=== PATIENT | male | born 1960 | race Caucasian/White ===

== ENCOUNTER 2018-04-25 08:33 | Emergency (ER) | payer OTHER ==
[2018-04-25 08:40] VITALS: BMI 29.9
--- NOTE | 2018-04-25 08:58 | PDOC ---
*Physical Exam - Vital Signs Last Vital Signs Temp Pulse Resp BP Pulse Ox 97.6 F 109 H 20 123/82 98 04/25/18 08:36 04/25/18 08:36 04/25/18 08:36 04/25/18 08:36 04/25/18 08:36 ED Treatment Course - LABORATORY CBC & Chemistry Diagram: 04/25/18 09:42 04/25/18 09:41 Medical Decision Making - Medical Decision Making 04/25/18 08:58 Mr Juárez is a 57 yo M who presents to the ER with a complaint of nausea, vomiting, diarrhea Three episodes of diarrhea (nonbloody, non mucoid, non bilious) Four episodes of vomiting No ill contacts, no recent travel No fevers or chills Pt seen by Midlevel Provider under my direct supervision Pt interviewed and examined Will do Labs No abd tenderness to suggest need for CT Re asseess Ancillary studies reviewed I agree with plan as outlined by Midlevel Provider 04/25/18 09:39 04/25/18 11:53 Laboratory Tests 04/25/18 04/25/18 04/25/18 09:41 09:41 09:42 WBC 16.0 H Hgb 14.8 Hct 44.6 Plt Count 262 BUN 20 H Creatinine 0.9 Urine WBC (Auto) 2 Urine RBC (Auto) 3 *DC/Admit/Observation/Transfer - Referrals Referrals: Mino Bunn MD [Primary Care Provider] - - Patient Instructions - Post Discharge Activity
--- NOTE | 2018-04-25 09:00 | PDOC ---
History of Present Illness - General Chief Complaint: Nausea/Vomiting Stated Complaint: VOMITING Time Seen by Provider: 04/25/18 08:52 Past History - Past Medical History Allergies/Adverse Reactions: Allergies Allergy/AdvReac Type Severity Reaction Status Date / Time No Known Allergies Allergy Verified 04/25/18 08:39 Home Medications: Ambulatory Orders Ondansetron [Zofran Odt -] 4 mg SL TID #10 od.tablet 04/25/18 COPD: No HTN: Yes - Suicide/Smoking/Psychosocial Hx Smoking History: Never smoked *Physical Exam - Vital Signs Last Vital Signs Temp Pulse Resp BP Pulse Ox 97.6 F 109 H 20 123/82 98 04/25/18 08:36 04/25/18 08:36 04/25/18 08:36 04/25/18 08:36 04/25/18 08:36 Moderate Sedation - Procedure Monitoring Vital Signs: Procedure Monitoring Vital Signs Temperature 97.6 F 04/25/18 08:36 Pulse Rate 109 H 04/25/18 08:36 Respiratory Rate 20 04/25/18 08:36 Blood Pressure 123/82 04/25/18 08:36 O2 Sat by Pulse Oximetry (%) 98 04/25/18 08:36 ED Treatment Course - LABORATORY CBC & Chemistry Diagram: 04/25/18 09:42 04/25/18 09:41 *DC/Admit/Observation/Transfer Diagnosis at time of Disposition: Gastroenteritis - Discharge Dispostion Disposition: HOME Condition at time of disposition: Stable Decision to Admit order: No - Referrals Referrals: Mino Bunn MD [Primary Care Provider] - - Patient Instructions Printed Discharge Instructions: DI for Vomiting -- Adult Additional Instructions: You have vomiting and diarrhea. You may take zofran every 8 hours as needed for nausea and vomiting. Avoid all dairy products until 48 hours after the vomiting/diarrhea has resolved. Eat a bland diet including apple sauce, toast, bananas, and plain rice Drink plenty of fluids including pedialyte, watered down juices and water Follow up with your primary care doctor this week Return to the ED if you develop fevers, abdominal pain, worsening vomiting, or if you have any changes in your symptoms. - Post Discharge Activity
[2018-04-25] MEDS ORDERED: ACETAMINOPHEN 1000 MG/100 ML VIAL (NON FORMULARY) IVPB ONE (09:30)
[2018-04-25] MEDS ORDERED: SODIUM CHLORIDE 1,000 ML IV STA ×2 (09:30→11:46)
[2018-04-25] MEDS ORDERED: ONDANSETRON 4 MG/2 ML VIAL IVPUSH ONE (09:30)
[2018-04-25] MEDS ORDERED: ACETAMINOPHEN INJECTION 100 ML IVPB ONE (09:43)
[2018-04-25] MEDS ORDERED: ONDANSETRON 4 MG/2 ML VIAL ONE (09:44)
[2018-04-25 10:33] LABS: BASO % 0.1 % (0-2.0); HEMATOCRIT 44.6 % (35.4-49); HEMOGLOBIN 14.8 GM/dL (11.7-16.9); LYMPH % 2.6 % (8-40); MCH 27.8 pg (25.7-33.7); MCHC 33.1 g/dl (32.0-35.9); MEAN CELL VOLUME 84.1 fl (80-96); MEAN PLT VOLUME 8.5 fl (7.5-11.1); MONO % 4.3 % (3.8-10.2); PLATELET COUNT 262 K/MM3 (134-434); RBC 5.31 M/mm3 (4.00-5.60); RDW 13.3 % (11.9-15.9)
[2018-04-25 10:38] LABS: URINE APPEARANCE CLEAR; URINE BILIRUBIN NEGATIVE (<2.0 mg/dL); URINE COLOR YELLOW; URINE GLUCOSE (UA) NEGATIVE (NEGATIVE); URINE KETONE NEGATIVE (NEGATIVE); URINE LEUK ESTERASE NEGATIVE (NEGATIVE); URINE NITRITE NEGATIVE (NEGATIVE); URINE PROTEIN NEGATIVE (NEGATIVE); URINE UROBILINOGEN NEGATIVE mg/dL (0.2-1.0)
[2018-04-25 10:48] LABS: EPI CELLS RARE /HPF (FEW); URINE HYALINE CAST 3 /lpf; URINE MUCUS FEW
[2018-04-25 11:00] LABS: ALBUMIN 4.4 g/dl (3.4-5.0); ALK PHOS 74 U/L (45-117); ANION GAP 9 MMOL/L (8-16); BILIRUBIN,TOTAL 0.7 mg/dL (0.2-1); BLOOD UREA NITROGEN 20 mg/dL (7-18); CALCIUM 8.7 mg/dL (8.5-10.1); CHLORIDE 106 mmol/L (98-107); CO2 23 mmol/L (21-32); CREATININE 0.9 mg/dL (0.55-1.3); GLUCOSE,RANDOM 119 mg/dL (74-106); POTASSIUM 4.2 mmol/L (3.5-5.1); SGOT/AST 44 U/L (15-37); SGPT/ALT 60 U/L (13-61); SODIUM 138 mmol/L (136-145); TOT PROT 7.3 g/dl (6.4-8.2)
[2018-04-25 12:37] LABS: ANISOCYTOSIS 0; MACROCYTOSIS 0; PLATELET ESTIMATE NORMAL
[2018-04-25 14:08] VITALS: BP 124/79; PULSE 94; TEMP 99.1
== END 2018-04-25 14:00 | disposition home or self-care (01) ==
LOC: JER 08:33
PROC: 3E0337Z Introduction of Electrolytic and Water Balance Substance into Peripheral Vein, Percutaneous Approach (ICD-10-PCS; principal; 2018-04-25)
PROC: 3E033GC Introduction of Other Therapeutic Substance into Peripheral Vein, Percutaneous Approach (ICD-10-PCS; 2018-04-25)
PROC: 3E033NZ Introduction of Analgesics, Hypnotics, Sedatives into Peripheral Vein, Percutaneous Approach (ICD-10-PCS; 2018-04-25)
DX: K52.9 Noninfective gastroenteritis and colitis, unspecified (principal)
CPT/HCPCS: 36415; 80053; 81003; 81015; 85025; 87086; 87804; 99282-25; J0131; J7030